=== PATIENT | female | born 1970 | race Caucasian/White ===

== ENCOUNTER 2016-11-05 16:14 | Emergency (ER) | payer OTHER ==
[2016-11-05 16:20] VITALS: BP 127/91; PULSE 77; RESP 18; TEMP 98.4
[2016-11-05] MEDS ORDERED: DIPH,PERTUS(ACELL)TETVAC-LF 0.5 ML VIAL IM ONE (16:25)
--- NOTE | 2016-11-05 16:27 | ED ---
Animal Bite HPI - General Chief Complaint: Animal Bite Stated Complaint: dog bite Time Seen by Provider: 11/05/16 16:22 Source: patient, RN notes reviewed Mode of arrival: ambulatory Limitations: no limitations - History of Present Illness Initial Comments: This a 46-year-old female presents emergency Department chief complaint dog bite to her right thumb. She states this was her neighbor's dog. She states the dog is up-to-date on vaccinations. Patient states she is unsure when her last tetanus was. Patient is full range of motion of her digit denies any paresthesias. She states it did break the skin. - Related Data Home Medications Medication Instructions Recorded Confirmed Albuterol Sulfate [Proair Hfa] 1 - 2 puff INHALATION RT-Q6H PRN 08/07/15 Beclomethasone Dipropionate [Qvar 1 - 2 puff INHALATION RT-BID PRN 08/07/15 80 mcg/puff] Ergocalciferol [Vitamin D2] 50,000 unit PO TH 08/07/15 11/17/15 Levothyroxine Sodium [Synthroid] 150 mcg PO HS 08/07/15 11/17/15 [facility] Advance Vitamin 1 tab PO DAILY 08/07/15 11/17/15 Previous Rx's Medication Instructions Recorded Butalb/Acetaminophen/Caffeine 1 each PO Q4HR PRN #20 tab 08/07/15 [Fioricet] methylPREDNISolone [Medrol] 4 mg PO DIRECTED #1 tab.ds.pk 09/10/15 Amoxicillin/Potassium Clav 1 tab PO Q12HR #20 tab 11/17/15 [Augmentin 875-125 Tablet] Amoxicillin/Potassium Clav 1 tab PO Q12HR #20 tab 11/05/16 [Augmentin 875-125 Tablet] Allergies Allergy/AdvReac Type Severity Reaction Status Date / Time adhesive Allergy Unknown Verified 11/05/16 16:21 adhesive tape Allergy Unknown Verified 11/05/16 16:21 aspirin Allergy Rash/Hives Verified 11/05/16 16:21 coconut oil Allergy Unknown Verified 11/05/16 16:21 latex Allergy Rash/Hives Verified 11/05/16 16:21 red dye Allergy Unknown Verified 11/05/16 16:21 antihistamines Allergy Rash/Hives Uncoded 11/05/16 16:21 neoprene Allergy Rash/Hives Uncoded 11/05/16 16:21 PRE-PACKAGED FOOD Allergy Unknown Uncoded 11/05/16 16:21 Review of Systems ROS Statement: Those systems with pertinent positive or pertinent negative responses have been documented in the HPI. ROS Other: All systems not noted in ROS Statement are negative. Past Medical History Past Medical History: Thyroid Disorder History of Any Multi-Drug Resistant Organisms: None Reported Past Surgical History: Cholecystectomy, Orthopedic Surgery Additional Past Surgical History / Comment(s): C6-7 spinal fusion ovarian cyst removal Past Psychological History: Depression Smoking Status: Never smoker Past Alcohol Use History: None Reported Past Drug Use History: None Reported General Exam Limitations: no limitations General appearance: alert, in no apparent distress Respiratory exam: Present: normal lung sounds bilaterally. Absent: respiratory distress, wheezes, rales, rhonchi, stridor Cardiovascular Exam: Present: regular rate, normal rhythm, normal heart sounds. Absent: systolic murmur, diastolic murmur, rubs, gallop, clicks Extremities exam: Present: other (Right thumb there are multiple puncture wounds noted no active bleeding patient has full range of motion neurovascular intact) Course Vital Signs 11/05/16 16:17 Temperature 98.4 F Pulse Rate 77 Respiratory 18 Rate Blood Pressure 127/91 O2 Sat by Pulse 97 Oximetry Medical Decision Making - Medical Decision Making 46-year-old female presented for dog bite to her hand. Patient's wounds were cleaned bacitracin applied. Patient was started on Augmentin tetanus was updated. The dog was up-to-date on rabies vaccine. Disposition Clinical Impression: Dog bite Disposition: HOME SELF-CARE Condition: Stable Instructions: Animal Bite (ED) Additional Instructions: Please return to the Emergency Department if symptoms worsen or any other concerns. Prescriptions: Amoxicillin/Potassium Clav [Augmentin 875-125 Tablet] 1 tab PO Q12HR #20 tab Referrals: Miguel Angel Omer MD [Primary Care Provider] - 1-2 days Time of Disposition: 16:26
== END 2016-11-05 16:52 | disposition home or self-care (01) ==
LOC: EC 16:14
DX: S61.051A Open bite of right thumb without damage to nail, initial encounter (principal); E07.9 Disorder of thyroid, unspecified; Z79.899 Other long term (current) drug therapy; Z88.6 Allergy status to analgesic agent; Z88.8 Allergy status to other drugs, medicaments and biological substances; Z91.048 Other nonmedicinal substance allergy status; Z91.018 Allergy to other foods; Z91.040 Latex allergy status; W54.0XXA Bitten by dog, initial encounter; Z23 Encounter for immunization
CPT/HCPCS: 90471; 90715; 99283

== ENCOUNTER → 2017-03-24 | Outpatient (CLI) | payer OTHER ==
--- NOTE | 2017-03-26 09:14 | MM ---
Reason for exam: screening (asymptomatic). Last mammogram was performed 1 year and 2 months ago. History: Patient is nulliparous. Took hormonal contraceptives for 7 years beginning at age 17. Physical Findings: A clinical breast exam by your physician is recommended on an annual basis and results should be correlated with mammographic findings. MG Screening Mammo w CAD Bilateral CC and MLO view(s) were taken. Prior study comparison: February 04, 2016, bilateral MG screening mammo w CAD. January 14, 2015, bilateral MG screening mammo w CAD. There are scattered fibroglandular densities. Finding: There are typically benign dystrophic, grouped/clustered calcifications in the 4 o'clock posterior position of the right breast consistent with fibroadenoma. No significant changes in finding since February 04, 2016 and January 14, 2015. ASSESSMENT: Benign, BI-RAD 2 RECOMMENDATION: Routine screening mammogram of both breasts in 1 year.
== END | disposition home or self-care (01) ==
LOC: RADMAMWWP 13:39
PROVIDERS: ATTEND Family Medicine
DX: Z12.31 Encounter for screening mammogram for malignant neoplasm of breast (principal)
CPT/HCPCS: 77067

== ENCOUNTER → 2018-04-14 | Outpatient (CLI) | payer OTHER ==
--- NOTE | 2018-04-15 09:12 | MM ---
Reason for exam: screening (asymptomatic). Last mammogram was performed 1 year and 1 month ago. History: Patient is nulliparous. Took hormonal contraceptives for 7 years beginning at age 17. Physical Findings: A clinical breast exam by your physician is recommended on an annual basis and results should be correlated with mammographic findings. MG Screening Mammo w CAD Bilateral CC and MLO view(s) were taken. Prior study comparison: March 24, 2017, bilateral MG screening mammo w CAD. February 04, 2016, bilateral MG screening mammo w CAD. January 14, 2015, bilateral MG screening mammo w CAD. December 26, 2013, bilateral MG diagnostic mammo w CAD [facility]. There are scattered fibroglandular densities. There is a stable right lower inner quadrant mass at posterior depth with dystrophic calcifications, likely a fibroadenoma, dating back to 2013. No suspicious abnormality. No significant changes when compared with prior studies. ASSESSMENT: Benign, BI-RAD 2 RECOMMENDATION: Routine screening mammogram of both breasts in 1 year.
== END | disposition home or self-care (01) ==
LOC: RADMAMWWP 15:23
PROVIDERS: ATTEND Family Medicine
DX: Z12.31 Encounter for screening mammogram for malignant neoplasm of breast (principal)
CPT/HCPCS: 77067

== ENCOUNTER → 2019-04-25 | Outpatient (CLI) | payer OTHER ==
--- NOTE | 2019-04-25 11:39 | MM ---
Reason for exam: screening (asymptomatic). Last mammogram was performed 1 year ago. History: Patient is nulliparous. Took hormonal contraceptives for 7 years beginning at age 17. Physical Findings: A clinical breast exam by your physician is recommended on an annual basis and results should be correlated with mammographic findings. MG Screening Mammo w CAD Bilateral CC and MLO view(s) were taken. Prior study comparison: April 14, 2018, bilateral MG screening mammo w CAD. March 24, 2017, bilateral MG screening mammo w CAD. There are scattered fibroglandular densities. Stable grouped calcifications posteriorly on the right. Subareolar asymmetric density left CC view is more defined but may represent superimposition shadow. Further evaluation is recommended. ASSESSMENT: Incomplete: need additional imaging evaluation, BI-RAD 0 RECOMMENDATION: Special view mammogram of the left breast. (3D) If lesion persists on supplemental views, image directed ultrasound is recommended. [facility] will attempt to contact patient to return for supplemental views and ultrasound if indicated.
== END ==
LOC: RADMAMWWP 07:10
PROVIDERS: ATTEND Family Medicine
DX: Z12.31 Encounter for screening mammogram for malignant neoplasm of breast (principal)
CPT/HCPCS: 77067

== ENCOUNTER → 2019-05-23 | Outpatient (CLI) | payer OTHER ==
--- NOTE | 2019-05-23 14:23 | MM ---
Reason for exam: additional evaluation requested from abnormal screening. Last mammogram was performed 1 month ago. History: Patient is nulliparous. Took hormonal contraceptives for 7 years beginning at age 17. Physical Findings: Nurse did not find any significant physical abnormalities on exam. MG Work Up Mamm w CAD LT Spot compression CC, spot compression ML, and ML view(s) were taken of the left breast. Prior study comparison: April 25, 2019, bilateral MG screening mammo w CAD. April 14, 2018, bilateral MG screening mammo w CAD. There are scattered fibroglandular densities. Asymmetric breast tissue left subareolar without distinct lesion on additional views. These results were verbally communicated with the patient and result sheet given to the patient on 05/23/19. ASSESSMENT: Negative, BI-RAD 1 RECOMMENDATION: Return to routine screening mammogram schedule for both breasts.
== END | disposition home or self-care (01) ==
LOC: RADMAMWWP 13:19
PROVIDERS: ATTEND Family Medicine
DX: R92.8 Other abnormal and inconclusive findings on diagnostic imaging of breast (principal)
CPT/HCPCS: 77065

== ENCOUNTER → 2020-04-29 | Outpatient (CLI) | payer OTHER ==
--- NOTE | 2020-05-01 08:26 | MM ---
Reason for exam: screening (asymptomatic). Last mammogram was performed 11 months ago. History: Patient is nulliparous. Took hormonal contraceptives for 7 years beginning at age 17. Physical Findings: A clinical breast exam by your physician is recommended on an annual basis and results should be correlated with mammographic findings. MG Screening Mammo w CAD Bilateral CC and MLO view(s) were taken. Prior study comparison: May 23, 2019, left breast MG work up mamm w CAD LT. April 25, 2019, bilateral MG screening mammo w CAD. There are scattered fibroglandular densities. Stable mass with calcifications, likely fibroid. No significant changes when compared with prior studies. ASSESSMENT: Benign, BI-RAD 2 RECOMMENDATION: Routine screening mammogram of both breasts in 1 year.
== END ==
LOC: RADMAMWWP 14:32
PROVIDERS: ATTEND Family Medicine
DX: Z12.31 Encounter for screening mammogram for malignant neoplasm of breast (principal)
CPT/HCPCS: 77067

== ENCOUNTER → 2021-05-08 | Outpatient (CLI) | payer OTHER ==
--- NOTE | 2021-05-09 11:51 | MM ---
Reason for exam: screening (asymptomatic). Last mammogram was performed 1 year ago. History: Patient is nulliparous. Took hormonal contraceptives for 7 years beginning at age 17. Physical Findings: A clinical breast exam by your physician is recommended on an annual basis and results should be correlated with mammographic findings. MG 3D Screening Mammo W/Cad Bilateral CC and MLO view(s) were taken. XCCL view(s) were taken of the right breast. Prior study comparison: April 29, 2020, bilateral MG screening mammo w CAD. May 23, 2019, left breast MG work up mamm w CAD LT. There are scattered fibroglandular densities. Stable benign calcifications. There is no discrete abnormality. No significant changes when compared with prior studies. ASSESSMENT: Benign, BI-RAD 2 RECOMMENDATION: Routine screening mammogram of both breasts in 1 year.
== END | disposition home or self-care (01) ==
LOC: RADMAMWWP 16:47
PROVIDERS: ATTEND Family Medicine
DX: Z12.31 Encounter for screening mammogram for malignant neoplasm of breast (principal)
CPT/HCPCS: 77063; 77067

== ENCOUNTER → 2021-05-20 | Outpatient (CLI) | payer OTHER ==
--- NOTE | 2021-05-21 08:55 | US ---
EXAMINATION TYPE: US pelvis complete transvag DATE OF EXAM: 05/20/2021 COMPARISON: NONE CLINICAL HISTORY: Pelvic pain R10.2. Pelvic pain, history of ovarian cysts, 2, para 2 TECHNIQUE: . Transabdominal sonographic images of the pelvis were acquired. Transvaginal sonographi c images were medically necessary to better assess the following anatomy: uterus and ovaries Date of LMP: 2021 EXAM MEASUREMENTS: Uterus: 5.9 x 3.1 x 3.9 cm Endometrial Stripe: 1.0 cm Right Ovary: not seen Left Ovary: not seen 1. Uterus: anteverted, heterogeneous 2. Endometrium: appears wnl 3. Right Ovary: not seen 4. Left Ovary: not seen 5. Bilateral Adnexa: wnl 6. Posterior cul-de-sac: wnl IMPRESSION: 1. Visualized pelvic ultrasound is unremarkable. 2. Ovaries are secured.
== END | disposition home or self-care (01) ==
LOC: RADUSWWP 16:27
PROVIDERS: ATTEND Obstetrics & Gynecology
DX: R10.2 Pelvic and perineal pain (principal)
CPT/HCPCS: 76830; 76856

== ENCOUNTER 2022-10-07 08:38 | Day surgery (SDC) | payer OTHER ==
[~2022-10-07 08:38] MED LIST: LACTATED RINGERS 1,000 ML IV SCH; LIDOCAINE 1% (10MG/ML) FOR IV START INTRADERMA PRN
[2022-10-07] MEDS ORDERED: LACTATED RINGERS 1,000 ML IV ONE (09:30)
[2022-10-07 09:59] VITALS: TEMP 97
[2022-10-07] MEDS ORDERED: PROPOFOL 10 MG/ML 20 ML VIAL IV ONE (10:10)
--- NOTE | 2022-10-07 10:26 | P.PCN ---
Date of Procedure: 10/07/22 Procedure(s) Performed: BRIEF HISTORY: Patient is a 52-year-old pleasant 8 female scheduled for an elective colonoscopy as a part of screening for colon cancer. PROCEDURE PERFORMED: Colonoscopy. PREOPERATIVE DIAGNOSIS: Screening for colon cancer. IV sedation per Anesthesia. PROCEDURE: After informed consent was obtained, the patient, was brought into the endoscopy unit. IV sedation was administered by Anesthesia under continuous monitoring. Digital rectal examination was normal. Initially the Olympus CF-160 flexible video colonoscope was then inserted in the rectum, gradually advanced into the cecum without any difficulty. Careful examination was performed as the scope was gradually being withdrawn. Ileocecal valve and the appendiceal orifice were visualized and appeared normal. Prep was excellent. Mucosa of the cecum, ascending colon, transverse colon, descending colon, sigmoid colon, and rectum appeared normal. Retroflexion was performed in the rectum and no lesions were seen. The patient tolerated the procedure well. IMPRESSION: Normal-appearing colon from rectum to cecum with no evidence of colorectal neoplasia. RECOMMENDATIONS: Findings of this examination were discussed with the patient as well as a family. She was advised to have a repeat screening colonoscopy in 10 years.
[2022-10-07 10:32] VITALS: RESP 14
[2022-10-07 11:03] VITALS: BP 129/73; PULSE 78
== END 2022-10-07 11:04 | disposition home or self-care (01) ==
LOC: ORWHC2ENDO 08:38
PROVIDERS: ATTEND Internal Medicine Gastroenterology
DX: Z12.11 Encounter for screening for malignant neoplasm of colon (principal); J45.909 Unspecified asthma, uncomplicated; E07.9 Disorder of thyroid, unspecified; Z79.899 Other long term (current) drug therapy; Z79.890 Hormone replacement therapy
CPT/HCPCS: 81025; 45378; J2704

== ENCOUNTER → 2023-05-13 | Outpatient (CLI) | payer OTHER ==
--- NOTE | 2023-05-17 10:36 | MM ---
Reason for Exam: Screening (asymptomatic). Last screening mammogram was performed 12 month(s) ago. Patient History: Menarche at age 13. Patient has no children. Hormonal Contraceptives for 7 years from age 17 until age 24. Risk Values: Ana Laura 5 year model risk: 1.1%. NCI Lifetime model risk: 9.7%. Prior Study Comparison: 04/29/2020 Bilateral Screening Mammogram, [facility]. 05/08/2021 Bilateral Screening Mammogram, [facility]. 05/11/2022 Bilateral MG screening mammo w CAD, [facility]. Tissue Density: There are scattered areas of fibroglandular density. Findings: Analyzed By CAD. There is no suspicious group of microcalcifications or new suspicious mass in either breast. Benign calcified tiny nodule stable in her margin lower portion right breast likely related to fibroadenoma. Benign-appearing lymph nodes. Asymmetric density in the central margin of the left breast. Overall Assessment: Incomplete: need additional imaging evaluation, BI-RAD 0 Management: Diagnostic Mammogram of the left breast. . Patient should continue monthly self-breast exams. A clinical breast exam by your physician is recommended on an annual basis. This exam should not preclude additional follow-up of suspicious palpable abnormalities. Note on Ana Laura scores and lifetime risk: 1. A Ana Laura score greater than 3% is considered moderate risk. If this is the case, consider specialist referral to assess eligibility for a risk reducing agent. 2. If overall lifetime risk for the development of breast cancer is 20% or higher, the patient may qualify for future screening with alternating mammogram and breast MRI. Electronically signed and approved by: Maurice Wilkes M.D. Radiologis
== END | disposition home or self-care (01) ==
LOC: RADMAMWWP 14:22
PROVIDERS: ATTEND Family Medicine
DX: Z12.31 Encounter for screening mammogram for malignant neoplasm of breast (principal)
CPT/HCPCS: 77067

== ENCOUNTER → 2023-05-18 | Outpatient (CLI) | payer OTHER ==
--- NOTE | 2023-05-18 09:14 | MM ---
Reason for Exam: Additional evaluation requested from abnormal screening. Last screening mammogram was performed less than 1 month ago. Patient History: Menarche at age 13. Patient has no children. Postmenopausal. Hormonal Contraceptives for 7 years from age 17 until age 24. Risk Values: Ana Laura 5 year model risk: 1.1%. NCI Lifetime model risk: 9.7%. Prior Study Comparison: 03/24/2017 Bilateral Screening Mammogram, [facility]. 04/14/2018 Bilateral Screening Mammogram, [facility]. 04/25/2019 Bilateral Screening Mammogram, [facility]. 05/23/2019 Left Diagnostic Mammogram, [facility]. 04/29/2020 Bilateral Screening Mammogram, [facility]. 05/08/2021 Bilateral Screening Mammogram, [facility]. 05/11/2022 Bilateral MG screening mammo w CAD, [facility]. 05/13/2023 Bilateral MG screening mammo w CAD, [facility]. Tissue Density: Left: The breasts are almost entirely fatty. Findings: Analyzed By CAD. Area of concern/asymmetry compresses out on spot compression imaging. No suspicious masses, calcifications or distortions. Overall Assessment: Benign, BI-RAD 2 Management: Screening Mammogram of both breasts in 1 year. Results were given to the patient verbally at the time of exam. Patient should continue monthly self-breast exams. A clinical breast exam by your physician is recommended on an annual basis. This exam should not preclude additional follow-up of suspicious palpable abnormalities. Note on Ana Laura scores and lifetime risk: 1. A Ana Laura score greater than 3% is considered moderate risk. If this is the case, consider specialist referral to assess eligibility for a risk reducing agent. 2. If overall lifetime risk for the development of breast cancer is 20% or higher, the patient may qualify for future screening with alternating mammogram and breast MRI. Electronically signed and approved by: Miguel Angel Smith DO
== END | disposition home or self-care (01) ==
LOC: RADMAMWWP 08:22
PROVIDERS: ATTEND Family Medicine
DX: R92.312 Mammographic fatty tissue density, left breast (principal); Z78.0 Asymptomatic menopausal state
CPT/HCPCS: 77065; G0279; 77061

== ENCOUNTER → 2023-06-02 | Outpatient (CLI) | payer OTHER ==
[2023-06-02 11:17] VITALS: BP 134/90; PULSE 79; RESP 18; TEMP 98.5
--- NOTE | 2023-06-02 11:56 | P.HPOB ---
History of Present Illness H&P Date: 06/02/23 Chief Complaint: Patient is here for her routine gynecologic exam. This is a 52-year-old -0-2-0 with an LMP of August 2022. She is here to establish with this office. It has been about 1-1/2 years since her last pelvic exam. Previously periods were regular until 3 years ago when she started having fewer periods. She states she has had hot flashes over the past 2 to 3 years. She has not been sexually active for about 5 years. He had 3 menstrual periods last year. She is otherwise without gynecologic complaints Review of Systems Her weight has been fluctuating between 280 and 290s. She had gained a fair amount of weight on 1 thyroid medication. She has been trying to lose weight with good diet. 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 Chemical pneumonitis with resulting asthma. Past NEWS REPORTER history: Genital warts as a teenager. No other history of STDs. History of Any Multi-Drug Resistant Organisms: None Reported Past Surgical History: Cholecystectomy, Orthopedic Surgery Additional Past Surgical History / Comment(s): C6-7 spinal fusion, ovarian cyst removal, R trigger thumb release. Colonoscopy 10/07/2022(next after 10yr). Past Anesthesia/Blood Transfusion Reactions: Postoperative Nausea & Vomiting (PONV) Additional Past Anesthesia/Blood Transfusion Reaction / Comment(s): Violent nausea/vomiting after galina. Pt has never received blood. Past Psychological History: Anxiety, Depression, PTSD Additional Psychological History / Comment(s): Pt resides alone. Smoking Status: Former smoker Past Alcohol Use History: None Reported Additional Past Alcohol Use History / Comment(s): Smoked for 1 year and quit at age 18. Past Drug Use History: None Reported Additional History: She is since 2000. She is currently not seeing anybody and is not sexually active. She cares for her aunt. - Past Family History Father History Unknown: Yes Family Medical History: Unable to Obtain Mother History Unknown: Yes Family Medical History: Diabetes Mellitus Additional Family Medical History / Comment(s): Bipolar disorder. Sister(s) Family Medical History: Diabetes Mellitus, Hyperlipidemia, Hypertension Additional Family Medical History / Comment(s): Bipolar disorder. Medications and Allergies Home Medications Medication Instructions Recorded Confirmed Type Ergocalciferol [Vitamin D2] 50,000 unit PO LARRY 08/07/15 06/02/23 History Albuterol Inhaler [Ventolin Hfa 1 puff INHALATION Q4H PRN 10/02/22 06/02/23 History Inhaler] Budesonide-Formot 160-4.5 Mcg 2 puff INHALATION BID 10/02/22 06/02/23 History [Symbicort 160-4.5 Mcg Inhaler] Ammonium Lactate Lotion 1 applic TOPICAL DIRECTED 06/02/23 06/02/23 History [Lac-Hydrin 12% Lotion] Furosemide [Lasix] 20 mg PO DAILY 06/02/23 06/02/23 History Levothyroxine Sodium [Synthroid] 137 mcg PO DAILY 06/02/23 06/02/23 History Loratadine 10 mg PO DAILY 06/02/23 06/02/23 History metroNIDAZOLE 0.75% CREAM 1 applic TOPICAL DIRECTED 06/02/23 06/02/23 History [Metrocream 0.75%] Allergies Allergy/AdvReac Type Severity Reaction Status Date / Time adhesive Allergy skin comes Verified 06/02/23 10:43 off adhesive tape Allergy Unknown Verified 06/02/23 10:43 aspirin Allergy Rash/Hives Verified 06/02/23 10:43 banana Allergy Dyspnea Verified 06/02/23 10:43 coconut oil Allergy Dyspnea Verified 06/02/23 10:43 latex Allergy Rash/Hives Verified 06/02/23 10:43 red dye Allergy Dyspnea Verified 06/02/23 10:43 antihistamines Allergy Dyspnea Uncoded 06/02/23 10:43 neoprene Allergy Rash/Hives Uncoded 06/02/23 10:43 PRE-PACKAGED FOOD Allergy Dyspnea Uncoded 06/02/23 10:43 Exam Vital Signs Temp Pulse Resp BP Pulse Ox 06/02/23 10:58 98.5 F 79 18 134/90 96 Intake and Output 06/01/23 06/02/23 06/02/23 22:59 06:59 14:59 Other: Weight 127.913 kg Height 5 feet 6 inches, weight 282 pounds, BMI 45.5 This is a well-developed well-nourished obese white female who is alert and oriented times 3 in no acute distress. HEENT: Within normal limits. NECK: Supple without mass or thyromegaly. CHEST AND LUNGS: Clear to auscultation. HEART: Regular rate and rhythm. BREASTS: Are without mass or discharge. AXILLARY EXAM: Negative for adenopathy. BACK: Negative for CVA tenderness. ABDOMEN: Soft, obese, nontender, without palpable masses. PELVIC EXAM: Normal external genitalia. Cervix and vagina appear normal with minimal atrophy. There is no unusual discharge. There is no evidence of prolapse. The uterus is midposition, nongravid size and nontender. There are no palpable adnexal masses or tenderness. Bimanual examination is somewhat limited secondary to her size. RECTAL EXAM: Rectovaginal exam is negative for mass or tenderness and is negative for occult blood. EXTREMITIES: Nontender. IMPRESSION: 1. 52-year-old perimenopausal female with oligomenorrhea and vasomotor symptoms, with unremarkable gynecologic exam. 2. Obesity. PLAN: 1. Pap smear cotest was performed. 2. Self breast awareness was discussed with the patient. We have also discussed symptoms associated with inflammatory breast cancer. 3. Screening mammogram was done on 05/13/2023 which did require a left breast workup and this was done on 05/18/2023. This was benign. Screening mammogram in 1 year was recommended. 4. Osteoporosis prevention was discussed. I have stressed the importance of adequate calcium, vitamin D and regular exercise. Recommended amounts of calcium and vitamin D were also discussed. 5. Patient will keep a menstrual calendar call if menstrual problems, or if bleeding after 12 months of amenorrhea. I have stressed the importance of making sure her thyroid hormone levels are under control as this could affect menstrual irregularity. 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 6. She was advised to return in one year for her annual well woman exam.
== END ==
LOC: WWCWWP 10:15
PROVIDERS: ATTEND Obstetrics & Gynecology
DX: Z01.419 Encounter for gynecological examination (general) (routine) without abnormal findings (principal); E66.9 Obesity, unspecified; N91.5 Oligomenorrhea, unspecified; I73.9 Peripheral vascular disease, unspecified; Z78.0 Asymptomatic menopausal state; Z87.891 Personal history of nicotine dependence; Z91.048 Other nonmedicinal substance allergy status; Z88.6 Allergy status to analgesic agent; Z91.018 Allergy to other foods; Z91.040 Latex allergy status; Z88.8 Allergy status to other drugs, medicaments and biological substances; Z91.041 Radiographic dye allergy status; Z68.42 Body mass index [BMI] 45.0-49.9, adult

== ENCOUNTER → 2024-06-02 | Outpatient (CLI) | payer OTHER ==
--- NOTE | 2024-06-02 12:12 | MM ---
Reason for Exam: Screening (asymptomatic). Last mammogram was performed 1 year(s) and 1 month(s) ago. Patient History: Menarche at age 13. Patient has no children. Postmenopausal. Hormonal Contraceptives for 7 years from age 17 until age 24. Risk Values: Ana Laura 5 year model risk: 1.2%. NCI Lifetime model risk: 9.6%. Prior Study Comparison: 05/11/2022 Bilateral MG screening mammo w CAD, [facility]. 05/13/2023 Bilateral MG screening mammo w CAD, [facility]. 05/18/2023 Left MG 3D work up w/cad LT, [facility]. Tissue Density: The breasts are heterogeneously dense, which may obscure small masses. Findings: Analyzed By CAD. There is no suspicious group of microcalcifications or new suspicious mass in either breast. Overall Assessment: Benign, BI-RAD 2 Management: Screening Mammogram of both breasts in 1 year. . Patient should continue monthly self-breast exams. A clinical breast exam by your physician is recommended on an annual basis. This exam should not preclude additional follow-up of suspicious palpable abnormalities. Note on Ana Laura scores and lifetime risk: 1. A Ana Laura score greater than 3% is considered moderate risk. If this is the case, consider specialist referral to assess eligibility for a risk reducing agent. 2. If overall lifetime risk for the development of breast cancer is 20% or higher, the patient may qualify for future screening with alternating mammogram and breast MRI. [facility], , 06/02/2024 12:09 PM. Electronically signed and approved by: Boy Friedman M.D. Radiologis
== END | disposition home or self-care (01) ==
LOC: RADMAMWWP 11:24
PROVIDERS: ATTEND Family Medicine
DX: Z12.31 Encounter for screening mammogram for malignant neoplasm of breast (principal); R92.333 Mammographic heterogeneous density, bilateral breasts; Z78.0 Asymptomatic menopausal state; Z92.0 Personal history of contraception
CPT/HCPCS: 77067

== ENCOUNTER → 2024-06-06 | Outpatient (CLI) | payer OTHER ==
[2024-06-06 11:45] VITALS: BP 126/79; PULSE 79; RESP 16; TEMP 98.1
--- NOTE | 2024-06-06 12:36 | P.HPOB ---
History of Present Illness H&P Date: 06/06/24 Chief Complaint: The patient is here for her routine gynecologic exam. This is a 53-year-old -0-2-0 with an LMP of 2022. The patient states her menstrual periods were regular up until about 4 years ago. For 2 years she had periods that were spacing out with hot flashes. She states that during the past year she has not had normal menstrual periods, but has had a day of slightly bloody mucus once a month. This is typically short and fairly predictable. She believes it relates to the time of her ovulation since she does feel some ovulatory discomfort that seems to alternate sides. She has not had regular menstrual type flow for about 2 years. Hot flashes are about the same as they have been for the last 2 to 3 years. Review of Systems The patient has gained 10 pounds over the last year. She denies respiratory, cardiac, or G.I. problems. Past Medical History Past Medical History: Asthma, GERD/Reflux, Hearing Disorder / Deafness, Renal Disease, Thyroid Disorder Additional Past Medical History / Comment(s): Ectopic kidney, [place] R ear, bilateral tinnitis. Chemical pneumonitis with resulting asthma. 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 No other history of STDs. History of Any Multi-Drug Resistant Organisms: None Reported Past Surgical History: Cholecystectomy, Orthopedic Surgery Additional Past Surgical History / Comment(s): C6-7 spinal fusion, ovarian cyst removal, R trigger thumb release. Colonoscopy 10/07/2022(next after 10yr). Past Anesthesia/Blood Transfusion Reactions: Postoperative Nausea & Vomiting (PONV) Additional Past Anesthesia/Blood Transfusion Reaction / Comment(s): Violent nausea/vomiting after galina. Pt has never received blood. Past Psychological History: Anxiety, Depression, PTSD Additional Psychological History / Comment(s): Pt resides alone. Smoking Status: Former smoker Past Alcohol Use History: None Reported Additional Past Alcohol Use History / Comment(s): Smoked for 1 year and quit at age 18. Past Drug Use History: None Reported Additional History: She is since 2000. She has not been sexually act maria r for several years. - Past Family History Father History Unknown: Yes Family Medical History: Unable to Obtain Mother History Unknown: Yes Family Medical History: Diabetes Mellitus Additional Family Medical History / Comment(s): Bipolar disorder. Sister(s) Family Medical History: Diabetes Mellitus, Hyperlipidemia, Hypertension Additional Family Medical History / Comment(s): Bipolar disorder. Medications and Allergies Home Medications Medication Instructions Recorded Confirmed Type Ergocalciferol [Vitamin D2] 50,000 unit PO LARRY 08/07/15 06/06/24 History Albuterol Inhaler [Ventolin Hfa 1 puff INHALATION Q4H PRN 10/02/22 06/06/24 History Inhaler] Budesonide-Formot 160-4.5 Mcg 2 puff INHALATION BID 10/02/22 06/06/24 History [Symbicort 160-4.5 Mcg Inhaler] Ammonium Lactate Lotion 1 applic TOPICAL DIRECTED 06/02/23 06/06/24 History [Lac-Hydrin 12% Lotion] Furosemide [Lasix] 20 mg PO DAILY 06/02/23 06/06/24 History Levothyroxine Sodium [Synthroid] 137 mcg PO DAILY 06/02/23 06/06/24 History Loratadine 10 mg PO DAILY 06/02/23 06/06/24 History metroNIDAZOLE 0.75% CREAM 1 applic TOPICAL DIRECTED 06/02/23 06/06/24 History [Metrocream 0.75%] Multivitamin [Multivitamins Adult 1 each PO DAILY 06/06/24 06/06/24 History Gummies] Allergies Allergy/AdvReac Type Severity Reaction Status Date / Time adhesive Allergy skin comes Verified 06/06/24 11:36 off adhesive tape Allergy Unknown Verified 06/06/24 11:36 aspirin Allergy Rash/Hives Verified 06/06/24 11:36 banana Allergy Dyspnea Verified 06/06/24 11:36 coconut oil Allergy Dyspnea Verified 06/06/24 11:36 latex Allergy Rash/Hives Verified 06/06/24 11:36 raspberry Allergy Rash/Hives Unverified 06/06/24 11:36 red dye Allergy Dyspnea Verified 06/06/24 11:36 antihistamines Allergy Dyspnea Uncoded 06/06/24 11:36 neoprene Allergy Rash/Hives Uncoded 06/06/24 11:36 PRE-PACKAGED FOOD Allergy Dyspnea Uncoded 06/06/24 11:36 Exam Vital Signs Temp Pulse Resp BP Pulse Ox 06/06/24 11:38 98.1 F 79 16 126/79 95 Intake and Output 06/05/24 06/06/24 06/06/24 22:59 06:59 14:59 Other: Weight 132.449 kg Height 5 feet 4 inches, weight 292 pounds, BMI 50.1 This is a well-developed well-nourished heavyset white female who is alert and oriented times 3 in no acute distress. HEENT: Within normal limits. NECK: Supple without mass or thyromegaly. CHEST AND LUNGS: Clear to auscultation. HEART: Regular rate and rhythm. BREASTS: Are without mass or discharge. AXILLARY EXAM: Negative for adenopathy. BACK: Negative for CVA tenderness. ABDOMEN: Soft,'s, nontender, without palpable masses. PELVIC EXAM: Normal external genitalia with minimal atrophy. Cervix and vagina appear normal with minimal atrophy. There is no unusual discharge. There is no blood in the vagina. There is no evidence of prolapse. The uterus is midposition, nongravid size and nontender. There are no palpable adnexal masses or tenderness. Bimanual examination is somewhat limited secondary to her size. RECTAL EXAM: Rectovaginal exam is negative for mass or tenderness and is negative for occult blood. EXTREMITIES: Nontender. IMPRESSION: 1. 53-year-old perimenopausal female with monthly very light spotting with unremarkable gynecologic exam. Possible very light menstrual flow with functioning ovaries versus postmenopausal bleeding. 2. Obesity. PLAN: 1. Pap smear was deferred since she had a negative Pap smear cotest on 06/02/2023. 2. Self breast awareness was discussed with the patient. We have also discussed symptoms associated with inflammatory breast cancer. 3. Screening mammogram was done on 06/02/2024 and was benign. She will repeat this after 1 year. 4. Patient will keep a symptom calendar and document when she does have the spotting. Will also plan on having her get a pelvic ultrasound to determine endometrial thickness. If the endometrium is thickened consider endometrial sampling. We can also consider a blood test to determine if her FSH is consistent with menopause. The order slip for a pelvic ultrasound was given to the patient. 5. Osteoporosis prevention was discussed. 6. She was advised to return in one year for her annual well woman exam and as needed.
== END ==
LOC: WWCWWP 11:20
PROVIDERS: ATTEND Obstetrics & Gynecology
DX: Z01.419 Encounter for gynecological examination (general) (routine) without abnormal findings (principal); E66.9 Obesity, unspecified; Z87.891 Personal history of nicotine dependence; Z68.43 Body mass index [BMI] 50.0-59.9, adult; Z91.040 Latex allergy status; Z88.8 Allergy status to other drugs, medicaments and biological substances; Z88.1 Allergy status to other antibiotic agents